=== PATIENT | female | born 1990 | race Caucasian/White ===

== ENCOUNTER 2022-09-08 17:38 | Emergency (ER) | payer MEDICAID ==
[~2022-09-08] VITALS: Ht 162.6 cm; Wt 53.8 kg
[2022-09-08] MEDS ORDERED: fluconazole 150mg tablet PO ONE (19:35)
[2022-09-08] MEDS ORDERED: ondansetron 4mg rapidly disintigrating tab PO ONE (19:35)
[2022-09-08] MEDS ORDERED: normal saline 1000ml 1,000 ML IV ONE (21:45)
[2022-09-08 22:43] LABS: URINE HCG NEGATIVE (NEG)
[2022-09-08 23:12] LABS: CLARITY,URINE SLIGHTLY CLOUDY (Clear); COLOR,URINE YELLOW (Yellow); GLUCOSE, URINE NEGATIVE (Neg); KETONES,URINE NEGATIVE (Neg); LEUKOCYTE ESTERASE ,URINE SMALL (Neg); NITRITES, URINE NEGATIVE (Neg); OCCULT BLOOD,URINE TRACE-INTACT (Neg); PH,URINE 5.5 (4.8-8.0); PROTEIN,URINE NEGATIVE (Neg); UROBILINOGEN,URINE 0.2 E.U/dL (0.2-1.0)
[2022-09-08 23:59] LABS: RBC,URINE 0-2 /HPF (0-2); UA COLLECTION TYPE CLN CATCH MIDSTREAM
[2022-09-09] LABS: BACTERIA,URINE FEW /HPF (Neg); MUCUS STRANDS FEW /LPF (Neg); SQUAMOUS EPITHELIAL CELL,UR FEW /LPF (FEW); WBC CLUMPS,URINE FEW /HPF (NEGATIVE)
[2022-09-09] MEDS ORDERED: CEPH500C81 PO (00:05)
[2022-09-09] MEDS ORDERED: ONDA4TAB12 PO (00:05)
[2022-09-09] MEDS ORDERED: cephalexin 500mg capsule PO ONE (00:05)
[2022-09-09 00:28] VITALS: BP 109/51
== END 2022-09-09 00:32 | disposition home or self-care (01) ==
LOC: ER 17:41
DX: N39.0 Urinary tract infection, site not specified (principal); B37.31 Acute candidiasis of vulva and vagina; N89.8 Other specified noninflammatory disorders of vagina; J45.909 Unspecified asthma, uncomplicated; F12.90 Cannabis use, unspecified, uncomplicated; Z88.1 Allergy status to other antibiotic agents; Z88.8 Allergy status to other drugs, medicaments and biological substances; Z56.0 Unemployment, unspecified
CPT/HCPCS: 81001; 81025; 87077; 87088; 87186; 99284; J7030

== ENCOUNTER 2023-03-05 19:17 | Emergency (ER) | payer MEDICAID ==
[~2023-03-05] VITALS: Ht 162.6 cm; Wt 52.3 kg
[~2023-03-05 19:17] MED LIST: ONDA4TAB12 PO; ONDA8TAB13 PO; PANT-47 PO
[2023-03-05 19:36] VITALS: BP 113/65; PULSE 79; RESP 16; TEMP 98.7; O2SAT 99
== END 2023-03-05 21:50 | disposition home or self-care (01) ==
LOC: ER 19:18
DX: R41.0 Disorientation, unspecified (principal); T50.B95A Adverse effect of other viral vaccines, initial encounter; J45.909 Unspecified asthma, uncomplicated; G89.29 Other chronic pain; F12.90 Cannabis use, unspecified, uncomplicated; Z72.89 Other problems related to lifestyle; Z56.0 Unemployment, unspecified; Z88.1 Allergy status to other antibiotic agents; Z79.899 Other long term (current) drug therapy; Y92.89 Other specified places as the place of occurrence of the external cause
CPT/HCPCS: 99281

== ENCOUNTER 2023-03-08 23:36 | Emergency (ER) | payer MEDICAID ==
[~2023-03-08] VITALS: Ht 162.6 cm; Wt 50.0 kg
[2023-03-09] MEDS ORDERED: acetaminophen 325mg tablet PO ONE (01:10)
[2023-03-09] MEDS ORDERED: normal saline 1000ml 1,000 ML IV ONE ×2 (01:25→03:00)
[2023-03-09] MEDS ORDERED: diphenhydrAMINE 50 mg/ml inj IV ONE (01:25)
[2023-03-09] MEDS ORDERED: ketorolac trometh. 30mg/ml inj. IV ONE (01:25)
[2023-03-09] MEDS ORDERED: metoclopramide 5 mg/ml inj IV ONE (01:25)
[2023-03-09 02:11] LABS: BASOPHILS % (AUTO) 0.7 % (0-1); EOSINOPHILS # (AUTO) 0.1 X10'3 (0-0.9); HEMOGLOBIN 13.9 g/dl (12.0-16.0); LYMPHOCYTES # (AUTO) 0.3 X10'3 (1.1-4.8); MONOCYTES # (AUTO) 0.2 X10'3 (0-0.9); RED BLOOD COUNT 4.54 X10'6 (4.20-5.60)
[2023-03-09 02:12] LABS: EOSINOPHILS % (AUTO) 1.9 % (0-6); MEAN CORPUSCULAR HEMOGLOBIN 30.6 PG (27.0-31.0); MEAN CORPUSCULAR HGB CONC 33.1 g/dL (33.0-36.5); MEAN CORPUSCULAR VOLUME 92.5 FL (78-98); MEAN PLATELET VOLUME 12.4 FL (7.4-10.4); MONOCYTES % (AUTO) 8.1 % (2-12); NEUTROPHILS # (AUTO) 2.4 X10'3 (1.8-7.7); NEUTROPHILS % (AUTO) 80.3 % (42-75); PLATELET COUNT 93 X10'3 (140-440); RED CELL DISTRIBUTION WIDTH 12.6 % (11.5-14.5)
[2023-03-09 02:16] LABS: ALANINE AMINOTRANSFERASE 25 U/L (12-78); ALKALINE PHOSPHATASE 84 IU/L (46-116); ANION GAP 9 (8-16); ASPARTATE AMINO TRANSFERASE 17 U/L (10-37); BILIRUBIN,TOTAL 0.4 MG/DL (0.1-1.0); BLOOD UREA NITROGEN 8 MG/DL (7-18); BUN/CREATININE RATIO 13.1 (10.0-20.0); CALCIUM 9.1 MG/DL (8.5-10.1); CHLORIDE 100 MMOL/L (99-107); CREATININE 0.61 MG/DL (0.40-0.90); GLUCOSE 91 MG/DL (70-104); POTASSIUM 3.8 MMOL/L (3.5-5.1); SODIUM 136 MMOL/L (135-145); TOTAL CARBON DIOXIDE 27.3 MMOL/L (24-32); TOTAL PROTEIN 8.1 G/DL (6.4-8.2); eCRCL 104 ML/MIN; eGFR > 90 ML/MIN
[2023-03-09] MEDS ORDERED: dexamethasone sod phosphate 10mg/ml inj IV STA (02:58)
[2023-03-09] MEDS ORDERED: NIRM1TAB5 PO (03:04)
[2023-03-09] MEDS ORDERED: ALBU18HF2 INH (03:04)
[2023-03-09 03:36] VITALS: BP 100/59; PULSE 94; RESP 16; TEMP 98; O2SAT 98
[2023-03-09 04:19] LABS: TOTAL CELLS COUNTED 100
[2023-03-09 04:20] LABS: LARGE PLATELETS FEW; PLATELET ESTIMATE DECREASED
[2023-03-09 04:22] LABS: GIANT PLATELET FEW
== END 2023-03-09 03:38 | disposition home or self-care (01) ==
LOC: ER 23:36
DX: U07.1 COVID-19 (principal); G89.29 Other chronic pain; M54.9 Dorsalgia, unspecified; F32.A Depression, unspecified; F12.10 Cannabis abuse, uncomplicated; J45.909 Unspecified asthma, uncomplicated; Z88.0 Allergy status to penicillin; Z88.1 Allergy status to other antibiotic agents; Z79.899 Other long term (current) drug therapy
CPT/HCPCS: 36415; 71045; 80053; 83605; 85007; 85025; 87040; 87502; 87503; 87811; 96361; 96374; 96375; 99284; J1100; J1200; J1885; J2765; J7030

== ENCOUNTER 2023-03-11 23:15 | Emergency (ER) | payer MEDICAID ==
[~2023-03-11] VITALS: Ht 162.6 cm; Wt 50.2 kg
[~2023-03-11 23:15] MED LIST changes: +ALBU18HF2 INH; +NIRM1TAB5 PO
[2023-03-12 00:04] LABS: URINE HCG NEGATIVE (NEG)
[2023-03-12 00:06] LABS: BILIRUBIN,URINE NEGATIVE (Neg); CLARITY,URINE SLIGHTLY CLOUDY (Clear); COLOR,URINE YELLOW (Yellow); GLUCOSE, URINE NEGATIVE (Neg); KETONES,URINE 40 mg/dl (Neg); LEUKOCYTE ESTERASE ,URINE NEGATIVE (Neg); NITRITES, URINE NEGATIVE (Neg); OCCULT BLOOD,URINE NEGATIVE (Neg); PROTEIN,URINE NEGATIVE (Neg); UROBILINOGEN,URINE 0.2 E.U/dL (0.2-1.0)
[2023-03-12 00:14] LABS: ALANINE AMINOTRANSFERASE 26 U/L (12-78); ALBUMIN 3.9 G/DL (3.4-5.0); ALKALINE PHOSPHATASE 73 IU/L (46-116); ANION GAP 10 (8-16); ASPARTATE AMINO TRANSFERASE 24 U/L (10-37); BILIRUBIN,TOTAL 0.3 MG/DL (0.1-1.0); BLOOD UREA NITROGEN 7 MG/DL (7-18); BUN/CREATININE RATIO 10.8 (10.0-20.0); CALCIUM 8.8 MG/DL (8.5-10.1); CHLORIDE 98 MMOL/L (99-107); CREATININE 0.65 MG/DL (0.40-0.90); GLUCOSE 88 MG/DL (70-104); POTASSIUM 3.2 MMOL/L (3.5-5.1); SODIUM 134 MMOL/L (135-145); TOTAL CARBON DIOXIDE 26.3 MMOL/L (24-32); eCRCL 98 ML/MIN; eGFR > 90 ML/MIN
[2023-03-12 00:17] LABS: URINE AMPHETAMINE SCREEN POSITIVE (Neg); URINE BARBITUATE SCREEN NEGATIVE (Neg); URINE BENZODIAZEPINES SCREEN NEGATIVE (Neg); URINE CANNABINOID SCREEN POSITIVE (Neg); URINE COCAINE SCREEN NEGATIVE (Neg); URINE METHADONE SCREEN NEGATIVE (Neg); URINE OPIATE SCREEN NEGATIVE (Neg); URINE PHENCYCLIDINE SCREEN NEGATIVE (Neg)
[2023-03-12 00:23] LABS: ETHANOL < 10 MG/DL (<10); THYROID STIMULATING HORMONE 3.27 ulU/ml (0.34-4.50)
[2023-03-12 00:28] LABS: UA COLLECTION TYPE CLN CATCH MIDSTREAM
[2023-03-12 00:30] LABS: BACTERIA,URINE FEW /HPF (Neg); MUCUS STRANDS FEW /LPF (Neg); RBC,URINE 0-2 /HPF (0-2); SQUAMOUS EPITHELIAL CELL,UR MANY /LPF (FEW); WBC,URINE 0-4 /HPF (0-4)
[2023-03-12 01:08] LABS: HEMOGLOBIN 13.8 g/dl (12.0-16.0); MEAN CORPUSCULAR HEMOGLOBIN 30.9 PG (27.0-31.0); MEAN CORPUSCULAR HGB CONC 33.6 g/dL (33.0-36.5); MEAN PLATELET VOLUME 12.5 FL (7.4-10.4); PLATELET COUNT 100 X10'3 (140-440); RED BLOOD COUNT 4.46 X10'6 (4.20-5.60); RED CELL DISTRIBUTION WIDTH 12.4 % (11.5-14.5); WHITE BLOOD COUNT 4.6 X10'3 (4.5-11.0)
[2023-03-12] MEDS ORDERED: POTASSIUM BICARB 20meq eff tab 20 MEQ TABLET.EFF PO ONE (01:15)
[2023-03-12] MEDS ORDERED: LORazepam 1 MG tablet PO ONE (01:25)
[2023-03-12 02:54] LABS: TOTAL CELLS COUNTED 100
[2023-03-12 02:55] LABS: GIANT PLATELET FEW; LARGE PLATELETS FEW; PLATELET ESTIMATE DECREASED
[2023-03-12] MEDS ORDERED: diphenhydrAMINE 25mg capsule PO ONE (03:10)
[2023-03-12] MEDS ORDERED: ALPRAZolam 0.5mg tablet PO ONE (03:10)
[2023-03-12] MEDS ORDERED: ALPR-624 PO (03:43)
[2023-03-12 04:05] VITALS: BP 140/78; PULSE 86; RESP 16; TEMP 98; O2SAT 100
== END 2023-03-12 04:08 | disposition home or self-care (01) ==
LOC: ER 23:18
DX: F41.9 Anxiety disorder, unspecified (principal); F19.10 Other psychoactive substance abuse, uncomplicated; Z20.822 Contact with and (suspected) exposure to COVID-19
CPT/HCPCS: 36415; 80053; 80305; 80320; 81001; 81025; 84443; 85007; 85025; 87811; 99284; Q0163; 81003

== ENCOUNTER 2023-03-12 19:14 | Emergency (ER) | payer MEDICAID ==
[~2023-03-12] VITALS: Ht 162.6 cm; Wt 49.8 kg
[~2023-03-12 19:14] MED LIST changes: +ALPR-624 PO
[2023-03-12 20:44] LABS: EOSINOPHILS % (AUTO) 0.5 % (0-6); MEAN CORPUSCULAR VOLUME 91.3 FL (78-98); MONOCYTES # (AUTO) 0.4 X10'3 (0-0.9); RED CELL DISTRIBUTION WIDTH 12.4 % (11.5-14.5)
[2023-03-12 20:46] LABS: BASOPHILS % (AUTO) 0.5 % (0-1); HEMATOCRIT 43.8 % (35.0-45.0); HEMOGLOBIN 14.8 g/dl (12.0-16.0); LYMPHOCYTES % (AUTO) 19.8 % (21-51); MEAN CORPUSCULAR HEMOGLOBIN 30.9 PG (27.0-31.0); MEAN CORPUSCULAR HGB CONC 33.8 g/dL (33.0-36.5); MEAN PLATELET VOLUME 12.1 FL (7.4-10.4); NEUTROPHILS # (AUTO) 3.6 X10'3 (1.8-7.7); NEUTROPHILS % (AUTO) 71.2 % (42-75); PLATELET COUNT 107 X10'3 (140-440)
[2023-03-12 20:56] LABS: ALANINE AMINOTRANSFERASE 19 U/L (12-78); ALBUMIN/GLOBULIN RATIO 0.9 (1.1-1.5); ALKALINE PHOSPHATASE 82 IU/L (46-116); ANION GAP 10 (8-16); ASPARTATE AMINO TRANSFERASE 23 U/L (10-37); BILIRUBIN,TOTAL 0.4 MG/DL (0.1-1.0); BLOOD UREA NITROGEN 7 MG/DL (7-18); BUN/CREATININE RATIO 10.4 (10.0-20.0); CALCIUM 9.4 MG/DL (8.5-10.1); CHLORIDE 100 MMOL/L (99-107); CREATININE 0.67 MG/DL (0.40-0.90); GLUCOSE 79 MG/DL (70-104); POTASSIUM 3.9 MMOL/L (3.5-5.1); SODIUM 138 MMOL/L (135-145); TOTAL CARBON DIOXIDE 28.3 MMOL/L (24-32); TOTAL PROTEIN 8.3 G/DL (6.4-8.2); eCRCL 94 ML/MIN; eGFR > 90 ML/MIN
[2023-03-12 21:04] LABS: ETHANOL < 10 MG/DL (<10); THYROID STIMULATING HORMONE 2.22 ulU/ml (0.34-4.50)
[2023-03-12 21:44] LABS: TOTAL CELLS COUNTED 100
[2023-03-12 21:45] LABS: PLATELET ESTIMATE DECREASED
[2023-03-12 21:46] LABS: GIANT PLATELET FEW; LARGE PLATELETS FEW
[2023-03-12] MEDS ORDERED: haloperidol lactate 5mg/ml inj IM STA (21:46)
[2023-03-12] MEDS ORDERED: diphenhydrAMINE 50 mg/ml inj IM STA (21:46)
[2023-03-12] MEDS ORDERED: LORazepam 2 mg/ml vial IM STA (21:46)
[2023-03-13 12:14] LABS: BILIRUBIN,URINE MODERATE (Neg); CLARITY,URINE SLIGHTLY CLOUDY (Clear); COLOR,URINE YELLOW (Yellow); GLUCOSE, URINE NEGATIVE (Neg); KETONES,URINE 15 mg/dl (Neg); LEUKOCYTE ESTERASE ,URINE NEGATIVE (Neg); NITRITES, URINE NEGATIVE (Neg); OCCULT BLOOD,URINE NEGATIVE (Neg); PROTEIN,URINE NEGATIVE (Neg); UROBILINOGEN,URINE 0.2 E.U/dL (0.2-1.0)
[2023-03-13 12:15] LABS: URINE HCG NEGATIVE (NEG)
[2023-03-13 12:19] LABS: UA COLLECTION TYPE VOIDED
[2023-03-13 12:24] LABS: URINE AMPHETAMINE SCREEN POSITIVE (Neg); URINE BARBITUATE SCREEN NEGATIVE (Neg); URINE BENZODIAZEPINES SCREEN POSITIVE (Neg); URINE CANNABINOID SCREEN POSITIVE (Neg); URINE COCAINE SCREEN NEGATIVE (Neg); URINE METHADONE SCREEN NEGATIVE (Neg); URINE OPIATE SCREEN NEGATIVE (Neg); URINE PHENCYCLIDINE SCREEN NEGATIVE (Neg)
[2023-03-13 12:56] LABS: BACTERIA,URINE FEW /HPF (Neg); MUCUS STRANDS MANY /LPF (Neg); RBC,URINE NONE SEEN /HPF (0-2); SQUAMOUS EPITHELIAL CELL,UR MANY /LPF (FEW); WBC,URINE 0-4 /HPF (0-4)
[2023-03-13] MEDS ORDERED: acetaminophen 325mg tablet PO ONE (17:40)
[2023-03-13 18:06] VITALS: BP 99/67; PULSE 95; RESP 16; TEMP 97.9; O2SAT 100
== END 2023-03-13 18:36 | disposition home or self-care (01) ==
LOC: ER 19:15
DX: U07.1 COVID-19 (principal); R45.851 Suicidal ideations; J45.909 Unspecified asthma, uncomplicated; G89.29 Other chronic pain; F12.90 Cannabis use, unspecified, uncomplicated; Z72.89 Other problems related to lifestyle; Z56.0 Unemployment, unspecified; Z88.0 Allergy status to penicillin; Z88.1 Allergy status to other antibiotic agents; Z88.8 Allergy status to other drugs, medicaments and biological substances; Z79.899 Other long term (current) drug therapy
CPT/HCPCS: 36415; 80053; 80305; 80320; 81001; 81025; 84443; 85007; 85025; 87811; 96372; 99284; J1200; J1630; J2060